=== PATIENT | female | born 1940 | race Asian ===

== ENCOUNTER 2022-07-26 11:10 | Inpatient (IN) | payer OTHER ==
[~2022-07-26] VITALS: Ht 170.2 cm; Wt 51.3 kg
[2022-07-26 11:13] VITALS: BP_SYST 199
[2022-07-26] MEDS ORDERED: LORazepam 1 MG TABLET PO ONE (11:30)
[2022-07-26 12:19] LABS: HEMATOCRIT 32.4 % (36-48); HEMOGLOBIN 10.7 g/dL (12.0-16.0); MEAN CORPUSCULAR HEMOGLOBIN 27 pg (27-31); MEAN CORPUSCULAR HGB CONC 33 % (32-36); MEAN CORPUSCULAR VOLUME 83 fL (79.0-98.0); PLATELET COUNT (AUTO) 208 K/uL (130-430); RED BLOOD CELL COUNT(AUTO) 3.91 MIL/uL (4.2-6.2); RED CELL DISTRIBUTION WIDTH 16.1 % (9.0-15.0); WHITE BLOOD COUNT (AUTO) 3.6 K/uL (4.8-10.8)
[2022-07-26 12:37] LABS: ANION GAP 9 (5-15); CALCIUM 8.8 mg/dL (8.4-11.0); CHLORIDE 92 mmol/L (98-107); CREATININE 0.71 mg/dL (0.55-1.30); GLUCOSE 83 mg/dL (70-99); UREA NITROGEN, BLOOD 10 mg/dL (8-21)
[2022-07-26 12:44] LABS: ALANINE AMINOTRANSFERASE 26 U/L (12-78); ALBUMIN 3.4 g/dL (3.4-4.8); ASPARTATE AMINOTRANSFERASE 26 U/L (10-37); TOTAL BILIRUBIN 0.3 mg/dL (0.0-1.0)
[2022-07-26 12:54] LABS: BASOPHILS % (MANUAL) 0 % (0-2); EOSINOPHILS % (MANUAL) 0 % (0-7); LYMPHOCYTES % (MANUAL) 33 % (20-46); MONOCYTES % (MANUAL) 14 % (0-11)
[2022-07-26] MEDS ORDERED: POTASSIUM CHLORIDE 20 MEQ TAB.PRT.SR PO PRN (13:30)
[2022-07-26] MEDS ORDERED: MAGNESIUM SULFATE 50 ML IV PRN (13:30)
[2022-07-26] MEDS ORDERED: ONDANSETRON HCL 4 MG/2 ML VIAL IVP PRN (13:30)
[2022-07-26] MEDS ORDERED: LORazepam 2 MG/ML VIAL IVP PRN (13:30)
[2022-07-26] MEDS ORDERED: NALOXONE HCL 0.4 MG/ML AMP (NARCAN) IVP PRN ×2 (13:30)
[2022-07-26] MEDS ORDERED: ACETAMINOPHEN 325 MG TABLET PO PRN (13:30)
[2022-07-26] MEDS ORDERED: ZOLPIDEM TARTRATE 5 MG TABLET PO PRN (13:30)
[2022-07-26] MEDS ORDERED: DOCUSATE SODIUM 100 MG CAPSULE PO PRN (13:30)
[2022-07-26] MEDS: NACL 0.9% 1,000 ML IV SCH (13:30)
[2022-07-26] MEDS ORDERED: MUPIROCIN 2% TOPICAL OINTMENT 22 GM NS PRN (13:30)
[2022-07-26] MEDS ORDERED: ENALAPRILAT DIHYDRATE 1.25 MG/ML VIAL IVP ONE (14:45)
[2022-07-26 14:54] LABS: INR 1.1 (0.8-1.2); PROTHROMBIN TIME 10.9 SECS (9.5-12.5)
[2022-07-26] MEDS ORDERED: amLODIPine BESYLATE 5 MG TABLET PO ONE (16:00)
[2022-07-26] MEDS ORDERED: LISINOPRIL 10 MG TABLET (PRINIVIL) PO ONE (16:00)
[2022-07-26] MEDS ORDERED: ENALAPRILAT DIHYDRATE 1.25 MG/ML VIAL ONE (17:53)
[2022-07-26] MEDS: HEPARIN SODIUM,PORCINE 5,000 UNITS/ML VIAL SUBCUT SCH (21:00)
[2022-07-27 00:40] VITALS: BP_SYST 138
[2022-07-27] MEDS: NACL 0.9% 1,000 ML IV SCH ×2 (01:52→14:30)
[2022-07-27 07:12] LABS: ANION GAP 7 (5-15); CALCIUM 8.3 mg/dL (8.4-11.0); CHLORIDE 97 mmol/L (98-107); CREATININE 0.72 mg/dL (0.55-1.30); GLUCOSE 99 mg/dL (70-99); UREA NITROGEN, BLOOD 12 mg/dL (8-21)
[2022-07-27 08:00] VITALS: BP_SYST 168
[2022-07-27 08:07] LABS: BASOPHILS % (AUTO) 0.9 % (0.0-2.0); EOSINOPHILS # (AUTO) 0.1 K/uL (0.0-0.4); EOSINOPHILS % (AUTO) 2.9 % (0.0-4.0); HEMATOCRIT 28.3 % (36-48); HEMOGLOBIN 9.4 g/dL (12.0-16.0); LYMPHOCYTES % (AUTO) 36.6 % (20.5-51.5); MEAN CORPUSCULAR HEMOGLOBIN 28 pg (27-31); MEAN CORPUSCULAR HGB CONC 33 % (32-36); MEAN CORPUSCULAR VOLUME 83 fL (79.0-98.0); MONOCYTES # (AUTO) 0.4 K/uL (0.0-1.0); MONOCYTES % (AUTO) 13.8 % (1.7-9.3); NEUTROPHILS # (AUTO) 1.2 K/uL (1.8-7.7); PLATELET COUNT (AUTO) 247 K/uL (130-430); RED CELL DISTRIBUTION WIDTH 16.5 % (9.0-15.0); WHITE BLOOD COUNT (AUTO) 2.7 K/uL (4.8-10.8)
[2022-07-27 08:47] LABS: NEUTROPHILS % (AUTO) 45.8 % (40.0-70.0)
[2022-07-27] MEDS: HEPARIN SODIUM,PORCINE 5,000 UNITS/ML VIAL SUBCUT SCH ×2 (08:50→21:00)
[2022-07-27 09:00] VITALS: BP_SYST 136
[2022-07-27] MEDS: LISINOPRIL 10 MG TABLET (PRINIVIL) PO SCH (09:00)
[2022-07-27] MEDS ORDERED: amLODIPine BESYLATE 5 MG TABLET PO SCH (09:00)
[2022-07-27 11:48] VITALS: BP_SYST 136
[2022-07-27 13:16] LABS: BILIRUBIN,URINE NEGATIVE (NEGATIVE); BLOOD, URINE NEGATIVE (NEGATIVE); CLARITY/URINE CLEAR (CLEAR); COLOR,URINE YELLOW (YELLOW); GLUCOSE,URINE NEGATIVE (NEGATIVE); KETONES,URINE NEGATIVE (NEGATIVE); LEUKOCYTE ESTERASE ,URINE TRACE (NEGATIVE); NITRITE, URINE NEGATIVE (NEGATIVE); PROTEIN URINE NEGATIVE (NEGATIVE); UROBILINOGEN,URINE 0.2 (0.2-1.0)
[2022-07-27 13:39] LABS: BACTERIA,URINE None Seen /HPF (None Seen); RBC,URINE 0-3 /HPF (0-3); WBC,URINE 0-3 /HPF (0-3)
[2022-07-27 17:46] VITALS: BP_SYST 155
[2022-07-27 20:00] VITALS: BP_SYST 145
[2022-07-28 00:30] VITALS: BP_SYST 169
[2022-07-28] MEDS: NACL 0.9% 1,000 ML IV SCH ×2 (03:00→15:30)
[2022-07-28 04:12] LABS: BASOPHILS % (AUTO) 0.6 % (0.0-2.0); EOSINOPHILS # (AUTO) 0.1 K/uL (0.0-0.4); EOSINOPHILS % (AUTO) 2.1 % (0.0-4.0); HEMATOCRIT 27.4 % (36-48); HEMOGLOBIN 9.3 g/dL (12.0-16.0); LYMPHOCYTES # (AUTO) 1.3 K/uL (1.0-5.5); LYMPHOCYTES % (AUTO) 40.8 % (20.5-51.5); MEAN CORPUSCULAR HEMOGLOBIN 28 pg (27-31); MEAN CORPUSCULAR HGB CONC 34 % (32-36); MEAN CORPUSCULAR VOLUME 81 fL (79.0-98.0); MONOCYTES # (AUTO) 0.4 K/uL (0.0-1.0); MONOCYTES % (AUTO) 13.6 % (1.7-9.3); NEUTROPHILS # (AUTO) 1.4 K/uL (1.8-7.7); NEUTROPHILS % (AUTO) 42.9 % (40.0-70.0); PLATELET COUNT (AUTO) 248 K/uL (130-430); RED BLOOD CELL COUNT(AUTO) 3.39 MIL/uL (4.2-6.2); RED CELL DISTRIBUTION WIDTH 16.3 % (9.0-15.0); WHITE BLOOD COUNT (AUTO) 3.2 K/uL (4.8-10.8)
[2022-07-28 04:45] LABS: ANION GAP 7 (5-15); CALCIUM 8.4 mg/dL (8.4-11.0); CHLORIDE 91 mmol/L (98-107); CREATININE 0.66 mg/dL (0.55-1.30); GLUCOSE 108 mg/dL (70-99); UREA NITROGEN, BLOOD 19 mg/dL (8-21)
[2022-07-28 08:00] VITALS: BP_SYST 171
[2022-07-28] MEDS: LISINOPRIL 10 MG TABLET (PRINIVIL) PO SCH (09:00)
[2022-07-28] MEDS ORDERED: LORazepam 2 MG/ML VIAL IM ONE (09:00)
[2022-07-28] MEDS ORDERED: COMMUNICATION ORDER XX ONE (11:15)
[2022-07-28] MEDS ORDERED: TRANEXAMIC ACID 1,000 MG/10 ML VIAL TP ONE (11:30)
[2022-07-28 12:16] VITALS: BP_SYST 142
[2022-07-28 16:41] VITALS: BP_SYST 155
[2022-07-28 20:00] VITALS: BP_SYST 163
[2022-07-28 22:37] VITALS: BP_SYST 163
[2022-07-29] VITALS: BP_SYST 163
[2022-07-29] MEDS: NACL 0.9% 1,000 ML IV SCH (04:00)
[2022-07-29 08:00] VITALS: BP_SYST 148
[2022-07-29] MEDS: LISINOPRIL 10 MG TABLET (PRINIVIL) PO SCH (08:52)
[2022-07-29] MEDS ORDERED: SODIUM CHLORIDE 500 MG TABLET PO SCH (09:00)
[2022-07-29 12:00] VITALS: BP_SYST 129
[2022-07-29 13:10] VITALS: BP_SYST 130
[2022-07-29] MEDS ORDERED: LISI10TA29 PO (13:18)
[2022-07-29 16:00] VITALS: BP_SYST 126
== END 2022-07-29 17:00 | DRG 641 ==
LOC: SED 11:10 → SMU 11:42
PROVIDERS: ADMIT General Practice; ATTEND General Practice
DX: E87.1 Hypo-osmolality and hyponatremia (principal); E44.0 Moderate protein-calorie malnutrition; I16.0 Hypertensive urgency; E83.51 Hypocalcemia; E87.6 Hypokalemia; F41.9 Anxiety disorder, unspecified; I10 Essential (primary) hypertension; Z20.822 Contact with and (suspected) exposure to COVID-19; F41.1 Generalized anxiety disorder; F29 Unspecified psychosis not due to a substance or known physiological condition
CPT/HCPCS: 36415; 80048; 80053; 81000; 83037; 83735; 84484; 85007; 85025; 85027; 85610-TC; 97116-GP; 97163-GP; 99285; J1644; J3490

== ENCOUNTER 2023-05-11 15:30 | Emergency (ER) | payer MEDICARE, OTHER ==
[~2023-05-11] VITALS: Ht 157.5 cm; Wt 52.2 kg
[2023-05-11 15:30] VITALS: BP_SYST 144; PULSE 74; RESP 19; TEMP 98.2; O2SAT 97
[~2023-05-11 15:30] MED LIST: LISI10TA29 PO
== END 2023-05-11 18:01 | disposition left against medical advice (07) ==
LOC: SED 15:30
DX: F41.9 Anxiety disorder, unspecified (principal); I10 Essential (primary) hypertension; Z53.21 Procedure and treatment not carried out due to patient leaving prior to being seen by health care provider
CPT/HCPCS: 93005; 99281

== ENCOUNTER 2023-12-07 07:15 | Inpatient (IN) | payer OTHER, MEDICARE ==
[~2023-12-07] VITALS: Ht 172.7 cm; Wt 61.2 kg
[2023-12-07 07:23] VITALS: BP_SYST 160; PULSE 78; RESP 18; TEMP 98.3; O2SAT 98
[2023-12-07] MEDS: NACL 0.9% 1,000 ML IV ONE (08:45)
[2023-12-07 09:07] LABS: ALANINE AMINOTRANSFERASE 80 U/L (12-78); ALBUMIN 3.5 g/dL (3.4-4.8); ANION GAP 7 (5-15); ASPARTATE AMINOTRANSFERASE 94 U/L (10-37); BILIRUBIN,DIRECT 0.1 mg/dL (0.0-0.3); CARBON DIOXIDE 27 mmol/L (23-29); CHLORIDE 107 mmol/L (98-107); CREATININE 0.96 mg/dL (0.55-1.30); GLUCOSE 90 mg/dL (74-106); POTASSIUM 5.1 mmol/L (3.5-5.1); SODIUM SERUM 141 mmol/L (136-145); TOTAL BILIRUBIN 0.4 mg/dL (0.0-1.0); TOTAL PROTEIN, SERUM 6.7 g/dL (6.4-8.3); UREA NITROGEN, BLOOD 17 mg/dL (8-21)
[2023-12-07 10:58] LABS: BILIRUBIN,URINE NEGATIVE (NEGATIVE); BLOOD, URINE NEGATIVE (NEGATIVE); CLARITY/URINE CLEAR (CLEAR); COLOR,URINE YELLOW (YELLOW); GLUCOSE,URINE NEGATIVE (NEGATIVE); KETONES,URINE NEGATIVE (NEGATIVE); LEUKOCYTE ESTERASE ,URINE TRACE (NEGATIVE); NITRITE, URINE NEGATIVE (NEGATIVE); PH,URINE 6.5 (5.0-8.0); PROTEIN URINE NEGATIVE (NEGATIVE); UROBILINOGEN,URINE 0.2 (0.2-1.0)
[2023-12-07 11:04] LABS: BACTERIA,URINE None Seen /HPF (None Seen); CALCIUM OXALATE CRYSTALS,UR None Seen /HPF (None Seen); CALCIUM PHOSPHATE CRYSTALS,UR None Seen /HPF (None Seen); COARSE GRANULAR CASTS,URINE None Seen /LPF (None Seen); FINE GRANULAR CASTS,URINE None Seen /LPF (None Seen); HYALINE CASTS, URINE None Seen /LPF (None Seen); MUCUS,URINE None Seen /LPF (None Seen); OTHER CASTS, URINE None Seen /LPF (None Seen); OTHER CRYSTALS,URINE None Seen /HPF (None Seen); RBC,URINE NONE SEEN /HPF (0-3); TRICHOMONAS,URINE None Seen /HPF (None Seen); TRIPLE PHOSPHATE CRYSTAL,UR None Seen /HPF (None Seen); URIC ACID CRYSTALS,URINE None Seen /HPF (None Seen); URINE AMORPHOUS PHOSPHATES None Seen /HPF (None Seen); URINE AMORPHOUS URATE None Seen /HPF (None Seen); WAXY CASTS,URINE None Seen /LPF (None Seen); WBC,URINE 0-3 /HPF (0-3); YEAST,URINE None Seen /HPF (None Seen)
[2023-12-07 11:19] LABS: EOSINOPHILS # (AUTO) 0.1 K/uL (0.0-0.4); EOSINOPHILS % (AUTO) 2.8 % (0.0-4.0); HEMATOCRIT 34.1 % (36-48); HEMOGLOBIN 11.2 g/dL (12.0-16.0); LYMPHOCYTES # (AUTO) 1.3 K/uL (1.0-5.5); LYMPHOCYTES % (AUTO) 38.1 % (20.5-51.5); MEAN CORPUSCULAR HEMOGLOBIN 30 pg (27-31); MEAN CORPUSCULAR HGB CONC 33 % (32-36); MEAN CORPUSCULAR VOLUME 90 fL (79.0-98.0); MONOCYTES # (AUTO) 0.3 K/uL (0.0-1.0); MONOCYTES % (AUTO) 8.1 % (1.7-9.3); NEUTROPHILS # (AUTO) 1.7 K/uL (1.8-7.7); PLATELET COUNT (AUTO) 207 K/uL (130-430); RED BLOOD CELL COUNT(AUTO) 3.78 MIL/uL (4.2-6.2); RED CELL DISTRIBUTION WIDTH 15.1 % (9.0-15.0); WHITE BLOOD COUNT (AUTO) 3.5 K/uL (4.8-10.8)
[2023-12-07] MEDS ORDERED: ACETAMINOPHEN 325 MG TABLET PO PRN (16:45)
[2023-12-07] MEDS ORDERED: HYDROcodone/ACETAMIN 5-325 MG TAB (NORCO/ VICODIN) PO PRN (16:45)
[2023-12-07] MEDS ORDERED: NALOXONE HCL 0.4 MG/ML AMP (NARCAN) IVP PRN ×2 (16:45)
[2023-12-07] MEDS ORDERED: HYDROcodone/ACETAMIN 10-325 MG TAB PO PRN (16:45)
[2023-12-07] MEDS ORDERED: LORazepam 2 MG/ML VIAL IVP PRN (16:45)
[2023-12-07] MEDS: D5/0.45 NS 1,000 ML IV SCH (16:45)
[2023-12-07] MEDS ORDERED: ONDANSETRON HCL 4 MG/2 ML VIAL IVP PRN (16:45)
[2023-12-07] MEDS ORDERED: LISINOPRIL 10 MG TABLET (PRINIVIL) ONE (20:18)
[2023-12-07] MEDS: hydrALAZINE HCL 20 MG/ML VIAL IVP ONE (21:42)
[2023-12-07] MEDS: LORazepam 2 MG/ML VIAL IVP ONE (21:55)
[2023-12-07 22:30] VITALS: BP_SYST 133; PULSE 87; RESP 17; RESP 20; TEMP 97.7; O2SAT 97
[2023-12-08] VITALS (7 sets, daily range): BP systolic 108–189; PULSE 61–82; RESP 12–21; TEMP 97.2–97.9; O2SAT 96–98
[2023-12-08] MEDS: ONDANSETRON HCL 4 MG/2 ML VIAL IM PRN (00:57)
[2023-12-08] MEDS: cloNIDine HCL 0.1 MG TABLET PO PRN (01:10)
[2023-12-08] MEDS: hydrALAZINE HCL 20 MG/ML VIAL IVP PRN (04:10)
[2023-12-08 05:07] LABS: BASOPHILS % (AUTO) 0.4 % (0.0-2.0); EOSINOPHILS % (AUTO) 0.6 % (0.0-4.0); HEMATOCRIT 34.1 % (36-48); HEMOGLOBIN 11.5 g/dL (12.0-16.0); LYMPHOCYTES # (AUTO) 1.3 K/uL (1.0-5.5); LYMPHOCYTES % (AUTO) 24.4 % (20.5-51.5); MEAN CORPUSCULAR HEMOGLOBIN 30 pg (27-31); MEAN CORPUSCULAR HGB CONC 34 % (32-36); MEAN CORPUSCULAR VOLUME 89 fL (79.0-98.0); MONOCYTES # (AUTO) 0.4 K/uL (0.0-1.0); MONOCYTES % (AUTO) 8.2 % (1.7-9.3); NEUTROPHILS # (AUTO) 3.5 K/uL (1.8-7.7); NEUTROPHILS % (AUTO) 66.4 % (40.0-70.0); PLATELET COUNT (AUTO) 221 K/uL (130-430); RED BLOOD CELL COUNT(AUTO) 3.81 MIL/uL (4.2-6.2); RED CELL DISTRIBUTION WIDTH 14.8 % (9.0-15.0); WHITE BLOOD COUNT (AUTO) 5.3 K/uL (4.8-10.8)
[2023-12-08 05:15] LABS: ANION GAP 6 (5-15); CARBON DIOXIDE 28 mmol/L (23-29); CHLORIDE 102 mmol/L (98-107); GLUCOSE 122 mg/dL (74-106); POTASSIUM 3.9 mmol/L (3.5-5.1); SODIUM SERUM 136 mmol/L (136-145); UREA NITROGEN, BLOOD 16 mg/dL (8-21)
[2023-12-08] MEDS: MINERAL OIL 30 ML UDC PO ONE (08:45)
[2023-12-08] MEDS: MINERAL OIL 133 ML ENEMA RC ONE (08:45)
[2023-12-08] MEDS: LISINOPRIL 10 MG TABLET (PRINIVIL) PO SCH (10:21)
[2023-12-09] VITALS: BP_SYST 145; PULSE 65; RESP 16; TEMP 98.2; O2SAT 96
[2023-12-09 08:00] VITALS: BP_SYST 147; PULSE 61; RESP 16; TEMP 97.8; O2SAT 93
[2023-12-09 12:27] VITALS: BP_SYST 150; PULSE 70; RESP 17; TEMP 98; O2SAT 98
[2023-12-09 16:00] VITALS: BP_SYST 146; PULSE 98; RESP 16; TEMP 98.1; O2SAT 97
[2023-12-09 20:00] VITALS: BP_SYST 133; PULSE 78; RESP 18; TEMP 98; O2SAT 97
[2023-12-10] VITALS: BP_SYST 165; PULSE 64; RESP 18; TEMP 98.6; O2SAT 98
[2023-12-10 08:00] VITALS: O2SAT 97
[2023-12-10 11:10] VITALS: BP_SYST 156; PULSE 74; RESP 16; TEMP 98.7; O2SAT 95
[2023-12-10 14:40] VITALS: BP_SYST 149; PULSE 81; RESP 18; TEMP 98.3; O2SAT 99
[2023-12-10 16:05] VITALS: BP_SYST 152; PULSE 72; RESP 16; TEMP 98.2; O2SAT 95
== END 2023-12-10 16:55 | DRG 391 ==
LOC: SED 07:15 → SMU 13:34 → STU 12-08 05:33 → SMU 12-09 17:33
PROVIDERS: ADMIT Preventive Medicine Preventive Medicine/Occupational Environmental Medicine; ATTEND Preventive Medicine Preventive Medicine/Occupational Environmental Medicine
DX: K31.89 Other diseases of stomach and duodenum (principal); G92.9 Unspecified toxic encephalopathy; D64.9 Anemia, unspecified; D72.819 Decreased white blood cell count, unspecified; I10 Essential (primary) hypertension; K44.9 Diaphragmatic hernia without obstruction or gangrene; F32.A Depression, unspecified; F41.9 Anxiety disorder, unspecified; R73.9 Hyperglycemia, unspecified; R74.01 Elevation of levels of liver transaminase levels
CPT/HCPCS: 36415; 70450-TC; 71045; 76700; 80048; 80076; 81000; 81001; 81015; 84484; 85025; 93005; 97112-GP; 97116-GP; 97530-GP; 99285; G0378; J0360; J2060; J2405